=== PATIENT | male | born 1955 | race Caucasian/White ===

== ENCOUNTER 2022-10-29 06:59 | Day surgery (SDC) | payer MEDICARE ==
[2022-10-28 11:41] LABS: EOSINOPHILS # (AUTO) 0.3 X10'3 (0-0.9); EOSINOPHILS % (AUTO) 4.2 % (0-6); MONOCYTES # (AUTO) 0.8 X10'3 (0-0.9)
[2022-10-28 11:42] LABS: BASOPHILS # (AUTO) 0.1 X10'3 (0-0.2); BASOPHILS % (AUTO) 0.9 % (0-1); HEMATOCRIT 43.7 % (42.0-52.0); HEMOGLOBIN 14.9 g/dl (14.0-17.9); LYMPHOCYTES # (AUTO) 1.9 X10'3 (1.1-4.8); LYMPHOCYTES % (AUTO) 25.8 % (21-51); MEAN CORPUSCULAR HEMOGLOBIN 31.5 PG (27.0-31.0); MEAN CORPUSCULAR VOLUME 92.6 FL (78-98); MEAN PLATELET VOLUME 7.3 FL (7.4-10.4); MONOCYTES % (AUTO) 11.7 % (2-12); NEUTROPHILS # (AUTO) 4.1 X10'3 (1.8-7.7); NEUTROPHILS % (AUTO) 57.4 % (42-75); PLATELET COUNT 274 X10'3 (140-440); RED BLOOD COUNT 4.72 X10'6 (4.70-6.10); RED CELL DISTRIBUTION WIDTH 13.1 % (11.5-14.5); WHITE BLOOD COUNT 7.2 X10'3 (4.5-11.0)
[2022-10-28 11:59] LABS: ANION GAP 10 (8-16); BLOOD UREA NITROGEN 21 MG/DL (7-18); BUN/CREATININE RATIO 19.8 (10.0-20.0); CHLORIDE 102 MMOL/L (99-107); CREATININE 1.06 MG/DL (0.60-1.10); GLUCOSE 98 MG/DL (70-104); POTASSIUM 3.8 MMOL/L (3.5-5.1); SODIUM 137 MMOL/L (135-145); TOTAL CARBON DIOXIDE 25.3 MMOL/L (24-32); eGFR 69 ML/MIN
[2022-10-28 12:00] LABS: APTT 26 SECONDS (22-32)
[~2022-10-29] VITALS: Ht 170.2 cm; Wt 93.5 kg
[2022-10-29] VITALS (10 sets, daily range): BP systolic 129–151; BP diastolic 67–90; PULSE 60–78; RESP 12–16; O2SAT 93–97
[2022-10-29] MEDS ORDERED: LORazepam 0.5 MG tablet PO PRN (07:20)
[2022-10-29] MEDS ORDERED: diphenhydrAMINE 25mg capsule PO PRN (07:20)
[2022-10-29] MEDS ORDERED: normal saline 1,000 ML IV SCH (07:20)
[2022-10-29] MEDS ORDERED: TADA20TA43 PO (07:38)
[2022-10-29] MEDS ORDERED: ATOR20TA66 PO (07:38)
[2022-10-29] MEDS ORDERED: OLME1TAB54 PO (07:38)
[2022-10-29] MEDS ORDERED: fentaNYL/PF 50MCG/1 ML 2ML syringe ONE (09:59)
[2022-10-29] MEDS ORDERED: nitroGLYCERIN-Tridil 50MG/D5W 250 ML IV ONE (09:59)
[2022-10-29] MEDS ORDERED: verapamil 2.5 mg/ml inj IV ONE (09:59)
[2022-10-29] MEDS ORDERED: iohexol 350MG/ML 100ml bottle IV ONE (09:59)
[2022-10-29] MEDS ORDERED: LIDOcaine 1% (10mg/ml) 2ml vial ONE ×2 (09:59→10:34)
[2022-10-29] MEDS ORDERED: midazolam 1 mg/ML 2ml injection ONE (09:59)
[2022-10-29] MEDS ORDERED: heparin 1,000unit/ml 10ml vial 10 ML ONE (10:00)
[2022-10-29] MEDS ORDERED: iohexol 350 MG/ML 50ML vial IV ONE ×2 (10:01→10:51)
[2022-10-29] MEDS ORDERED: LIDOcaine 1% 30ml preserv. free vial ONE (10:34)
[2022-10-29 11:21] LABS: ISTAT HGB ART 13.9 g/dl (14.0-17.9); ISTAT Hct ART 41 %PCV (42-52); ISTAT O2 SATURATION ARTERIAL 98 % (95-98); ISTAT SOURCE ART
[2022-10-29 12:01] LABS: ISTAT Hct MIX 42 %PCV (42-52); ISTAT O2 SATURATION MIX VENOUS 69 % (60-80); ISTAT SOURCE VEN
== END 2022-10-29 16:00 | disposition home or self-care (01) ==
LOC: SSTAY O 06:59
PROVIDERS: ATTEND Internal Medicine Cardiovascular Disease
DX: I08.0 Rheumatic disorders of both mitral and aortic valves (principal); I25.10 Atherosclerotic heart disease of native coronary artery without angina pectoris; E78.5 Hyperlipidemia, unspecified; I10 Essential (primary) hypertension; G47.39 Other sleep apnea; Z98.1 Arthrodesis status; Z98.890 Other specified postprocedural states; Z98.52 Vasectomy status; Z72.89 Other problems related to lifestyle; F12.90 Cannabis use, unspecified, uncomplicated; Z79.899 Other long term (current) drug therapy; Z79.01 Long term (current) use of anticoagulants
CPT/HCPCS: 76937; 80048; 82803; 85014; 85025; 85610; 85730; 93005; 93460; 93567; 99152; 99153; J1644; J2250; J3010; J3490; Q0163; Q9967; A6258; C1725; C1769; C1894

== ENCOUNTER 2024-07-28 06:15 | Day surgery (SDC) | payer MEDICARE ==
[2024-07-27 12:57] LABS: BASOPHILS % (AUTO) 0.7 % (0-1); EOSINOPHILS # (AUTO) 0.3 X10'3 (0-0.9); EOSINOPHILS % (AUTO) 4.2 % (0-6); HEMATOCRIT 42.2 % (42.0-52.0); HEMOGLOBIN 14.4 g/dl (14.0-17.9); LYMPHOCYTES # (AUTO) 1.7 X10'3 (1.1-4.8); LYMPHOCYTES % (AUTO) 28.3 % (21-51); MEAN CORPUSCULAR HEMOGLOBIN 31.4 PG (27.0-31.0); MEAN CORPUSCULAR HGB CONC 34.1 g/dL (33.0-36.5); MEAN PLATELET VOLUME 7.2 FL (7.4-10.4); MONOCYTES # (AUTO) 0.7 X10'3 (0-0.9); MONOCYTES % (AUTO) 11.9 % (2-12); NEUTROPHILS # (AUTO) 3.4 X10'3 (1.8-7.7); NEUTROPHILS % (AUTO) 54.9 % (42-75); PLATELET COUNT 296 X10'3 (140-440); RED BLOOD COUNT 4.59 X10'6 (4.70-6.10); RED CELL DISTRIBUTION WIDTH 13.5 % (11.5-14.5); WHITE BLOOD COUNT 6.1 X10'3 (4.5-11.0)
[2024-07-27 13:06] LABS: APTT 26 SECONDS (22-32); PROTHROMBIN TIME 10.5 SECONDS (9.0-12.0)
[2024-07-27 13:10] LABS: ANION GAP 6 (8-16); BLOOD UREA NITROGEN 14 MG/DL (7-18); BUN/CREATININE RATIO 15.1 (10.0-20.0); CALCIUM 8.8 MG/DL (8.5-10.1); CHLORIDE 104 MMOL/L (99-107); CREATININE 0.93 MG/DL (0.60-1.10); GLUCOSE 96 MG/DL (70-104); POTASSIUM 3.9 MMOL/L (3.5-5.1); SODIUM 140 MMOL/L (135-145); TOTAL CARBON DIOXIDE 30.3 MMOL/L (24-32); eGFR 80 ML/MIN
[2024-07-28] VITALS (10 sets, daily range): BP systolic 115–139; BP diastolic 59–81; PULSE 63–79; RESP 10–16; TEMP 98.7; O2SAT 93–98
[~2024-07-28] VITALS: Ht 170.2 cm; Wt 90.8 kg
[~2024-07-28 06:15] MED LIST: ATOR20TA66 PO; OLME1TAB54 PO; TADA20TA43 PO
[2024-07-28] MEDS ORDERED: normal saline 1,000 ML IV SCH (06:35)
[2024-07-28] MEDS ORDERED: LORazepam 0.5 MG tablet PO PRN (06:35)
[2024-07-28] MEDS ORDERED: ATOR40TA72 PO (06:39)
[2024-07-28] MEDS ORDERED: OMEG100037 PO (06:41)
--- NOTE | 2024-07-28 06:45 | ELECTROCARDIOGRAPH REPORT ---
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 Emerson Wright Measurements Intervals Sandwich Rate: 68 P: 39 [place]: 208 QRS: -46 QRSD: 167 T: 26 QT: 438 QTc: 466 Interpretive Statements Sinus rhythm Probable left atrial enlargement Consider old inferior infarction RBBB and LAFB Electronically Signed On 07-28-2024 9:47:[address] Emerson Wright Please click the below link to view image of tracing.
[2024-07-28] MEDS ORDERED: iohexol 350 MG/ML 50ML vial IV ONE (07:40)
[2024-07-28] MEDS ORDERED: heparin 1,000unit/ml 10ml vial 10 ML ONE (07:40)
[2024-07-28] MEDS ORDERED: fentaNYL/PF 50MCG/1 ML 2ML syringe ONE (07:40)
[2024-07-28] MEDS ORDERED: LIDOcaine 1% (10mg/ml) 2ml vial ONE (07:40)
[2024-07-28] MEDS ORDERED: iohexol 350MG/ML 100ml bottle IV ONE (07:40)
[2024-07-28] MEDS ORDERED: verapamil 2.5 mg/ml inj IV ONE (07:40)
[2024-07-28] MEDS ORDERED: midazolam 1 mg/ML 2ml injection ONE (07:40)
[2024-07-28] MEDS ORDERED: nitroGLYCERIN 500mcg/5mL D5W 5 ML IV ONE (07:41)
[2024-07-28 08:52] LABS: ISTAT HGB ART 13.3 g/dl (14.0-17.9); ISTAT Hct ART 39 %PCV (42-52); ISTAT O2 SATURATION ARTERIAL 97 % (95-98); ISTAT SOURCE ART
[2024-07-28] MEDS ORDERED: normal saline 1000ml 1,000 ML IV SCH (09:45)
--- NOTE | 2024-07-29 02:24 | CARDIOLOGY REPORT ---
DATE OF SERVICE: 07/28/2024 DICTATING PHYSICIAN: VICKY Ornelas MD CARDIAC CATHETERIZATION GENDER: Male. AGE: 68. HEIGHT: 170 cm. WEIGHT: 91 kg. BODY SURFACE AREA: 2.02 m2. PRIMARY PHYSICIAN: Alla Navarro MD CARDIOLOGY: VICKY Ornelas MD INDICATION: The patient is a 68-year-old male with history of hypertension, hyperlipidemia, CAD, aortic stenosis. He had a coronary angiography on 11/19. At that time, his aortic valve was moderately narrowed with mild CAD. The patient is being followed since then. His echocardiogram from 07/20/2024 showed ejection of 65%, heavily calcified aortic valve with aortic valve area of 0.96 cm2 with peak/mean gradient of 72/48 mmHg. The patient also has been now having exertional fatigue and tiredness and reports about 20-30% drop in his energy level and after discussing risks, benefits, alternative options, the patient prefers to proceed with evaluation for TAVR and hence undergoing coronary angiography. Risks, benefits, and alternative options were discussed and informed consent obtained. PROCEDURE TECHNIQUE: The patient underwent a left heart catheterization, right radial approach, 6-Italian right radial sheath. Post-procedure access site secured with right radial band. The patient underwent right heart catheterization from right antecubital approach, 6-Italian sheath. Post-procedure access site hemostasis secured with manual compression. PROCEDURES DONE: * Ultrasound-guided right radial artery visualization and access. * Right heart catheterization. * Left heart catheterization. * LVG. * Coronary cineangiography. * Conscious sedation of 30 minutes. FINDINGS: HEMODYNAMICS: Aortic systolic 126, diastolic 69, mean 91 mmHg. LV systolic 216, LVEDP of 25 mmHg. There is a mean gradient of 69.25 mmHg across the aortic valve with aortic valve area of 0.78 cm2. Pulmonary capillary wedge pressure is 5 mmHg. PA pressure of 24/10 mmHg. RV 28/5 mmHg. Cardiac output with thermodilution method is 8.07 L/min. Cardiac index was 3.99 L/min/m2. Aortic oxygen saturation 98% and pulmonary arterial oxygen saturation of 78%. LEFT VENTRICULOGRAM: Overall, left ventricular systolic function normal. LV ejection fraction of 70%. CORONARY CINEANGIOGRAPHY: Left main coronary artery is a large caliber vessel, engaged with JL4 catheter from right radial approach. No significant disease seen. LAD is a medium caliber vessel arising at the bifurcation of the left main coronary artery, courses through the anterior intraventricular groove and ends by wrapping around the apex. LAD has an area of 10-20% narrowing. Diagonal 1 is 3.5 mm caliber with mild luminal irregularities. Diagonal 2 is 2 mm caliber with minimal luminal irregularities. Circumflex artery is a medium caliber vessel arising at the bifurcation of the left main coronary, predominantly continues as principal obtuse marginal branch, which is about 3 mm in diameter. Right coronary artery is a medium caliber vessel arising from right aortic sinus, courses through the right AV groove, ends at the posterior crux by dividing into PDA and the posterolateral branch. RCA has areas of 20% narrowing. RCA in its branches have mild luminal irregularities. IMPRESSION: A 68-year-old male with LV ejection fraction of 70%. LVEDP of 25 mmHg. There is a mean gradient of 69.25 mmHg with aortic valve of 0.78 cm2. Pulmonary capillary wedge pressure of 5 mmHg. PA pressure of 24/10 mmHg. Left main normal. LAD areas of 10-20% narrowing. Circumflex with minimal disease. Dominant RCA with mid and distal 20% narrowing. RECOMMENDATIONS: Recommend continued aggressive coronary risk factor modification, namely low-fat, low-cholesterol diet, maintaining ideal body weight, keeping LDL less than 70 mg percent with regular exercise program. In view of his symptoms, the patient is being referred to TAVR Program. Risks, benefits, and alternative options discussed with the patient and his . VICKY Ornelas MD TID: [id number] RECEIPT: [id number] EMMA/KEVIN/CASEY cc: Alla Navarro MD [facility]
[2024-07-29 06:07] LABS: ISTAT HGB MIX 12.9 g/dl (14.0-17.9); ISTAT Hct MIX 38 %PCV (42-52); ISTAT O2 SATURATION MIX VENOUS 78 % (60-80); ISTAT SOURCE BLNK
== END 2024-07-28 14:00 | disposition home or self-care (01) ==
LOC: SSTAY O 06:15
PROVIDERS: ATTEND Internal Medicine Cardiovascular Disease
DX: I25.119 Atherosclerotic heart disease of native coronary artery with unspecified angina pectoris (principal); I35.0 Nonrheumatic aortic (valve) stenosis; I34.2 Nonrheumatic mitral (valve) stenosis; I10 Essential (primary) hypertension; G47.39 Other sleep apnea; E78.5 Hyperlipidemia, unspecified; Z98.890 Other specified postprocedural states; Z79.01 Long term (current) use of anticoagulants
CPT/HCPCS: 36415; 80048; 82803; 85014; 85025; 85610; 85730; 93005; 93460; 99152; 99153; A6258; A6402; C1725; C1894; J1644; J2003; J2250; J3010; J3490; J7030; Q9967; Z7610; 76937

== ENCOUNTER 2024-08-03 08:32 | Outpatient (CLI) | payer MEDICARE ==
[~2024-08-03 08:32] MED LIST changes: -ATOR20TA66 PO; +ATOR40TA72 PO; +OMEG100037 PO; +iohexol 350MG/ML 100ml bottle IV ONE
[2024-08-03 09:00] LABS: BASOPHILS % (AUTO) 0.6 % (0-1); EOSINOPHILS # (AUTO) 0.3 X10'3 (0-0.9); EOSINOPHILS % (AUTO) 5.1 % (0-6); HEMATOCRIT 42.8 % (42.0-52.0); HEMOGLOBIN 14.6 g/dl (14.0-17.9); LYMPHOCYTES # (AUTO) 1.5 X10'3 (1.1-4.8); LYMPHOCYTES % (AUTO) 23.7 % (21-51); MEAN CORPUSCULAR HEMOGLOBIN 31.4 PG (27.0-31.0); MEAN CORPUSCULAR VOLUME 92.2 FL (78-98); MEAN PLATELET VOLUME 7.1 FL (7.4-10.4); MONOCYTES % (AUTO) 16.4 % (2-12); NEUTROPHILS # (AUTO) 3.4 X10'3 (1.8-7.7); NEUTROPHILS % (AUTO) 54.2 % (42-75); PLATELET COUNT 234 X10'3 (140-440); RED BLOOD COUNT 4.64 X10'6 (4.70-6.10); RED CELL DISTRIBUTION WIDTH 13.5 % (11.5-14.5); WHITE BLOOD COUNT 6.2 X10'3 (4.5-11.0)
[2024-08-03 09:14] LABS: APTT 27 SECONDS (22-32); PROTHROMBIN TIME 10.4 SECONDS (9.0-12.0)
[2024-08-03 09:22] LABS: ALANINE AMINOTRANSFERASE 26 U/L (12-78); ALBUMIN 3.8 G/DL (3.4-5.0); ALBUMIN/GLOBULIN RATIO 1.1 (1.1-1.5); ALKALINE PHOSPHATASE 89 IU/L (46-116); ANION GAP 8 (8-16); ASPARTATE AMINO TRANSFERASE 20 U/L (10-37); BILIRUBIN,TOTAL 0.5 MG/DL (0.1-1.0); BLOOD UREA NITROGEN 9 MG/DL (7-18); BUN/CREATININE RATIO 9.7 (10.0-20.0); CALCIUM 8.7 MG/DL (8.5-10.1); CHLORIDE 102 MMOL/L (99-107); CREATININE 0.93 MG/DL (0.60-1.10); GLUCOSE 108 MG/DL (70-104); PRO BRAIN NATRIURETIC PEPTIDE 113 PG/ML (0-125); SODIUM 142 MMOL/L (135-145); TOTAL CARBON DIOXIDE 31.7 MMOL/L (24-32); TOTAL PROTEIN 7.3 G/DL (6.4-8.2); eGFR 80 ML/MIN
[2024-08-03 10:24] LABS: TOTAL CELLS COUNTED 100
[2024-08-03 10:25] LABS: PLATELET ESTIMATE NORMAL
--- NOTE | 2024-08-03 11:01 | RADIOLOGY REPORT ---
DI CHEST,TWO VIEWS CLINICAL HISTORY: TAVR COMPARISON: None TECHNIQUE: Frontal and lateral view of the chest was obtained FINDINGS: Lines and Tubes: None Lungs: No focal consolidation. Pleura: No effusion. No pneumothorax. Cardiomediastinal contours: Unremarkable Bones: No acute osseous abnormality. IMPRESSION: No acute cardiopulmonary disease.
--- NOTE | 2024-08-03 12:24 | VASCULAR REPORT ---
CAROTID ARTERIAL DOPPLER CLINICAL HISTORY: Preop. TECHNIQUE: Doppler study of bilateral carotid/vertebral arteries were performed. Comparison: None FINDINGS: The bilateral common carotid, external and internal carotid arteries appear patent without hemodynami felix significant stenosis. There is no significant flow limiting plaque formation identified.The sp ectral wave forms and peak systolic velocities are within normal limits. Antegrade flow is present within the vertebral arteries. Right ICA/CCA PSV ratio = 1.04. Left ICA/CCA PSV ratio = 0.71 . IMPRESSION: 1. No hemodynamically significant stenosis within the carotid arteries. HS:Y
--- NOTE | 2024-08-04 16:27 | RADIOLOGY REPORT ---
Procedure: CT CTA TAVR Reason for study/Clinical History: Chest pain, evaluate for dissection. Comparison Study: None Exam Date: 08/03/2024 10:30 AM TECHNIQUE: Multiplanar reformatted images were generated from volumetric data acquired on a multidetector CT [facility] [place]. Cardiac gating was utilized. Arterial phase images were obtained through the chest, abdomen and pelvis following intravenous administration of contrast material. 100 mL visipaque [address] dose reduction techniques were utilized. 3-D reconstructions were performed on an independent work station. Radiation Dose Information: CT Dose: CTDI volume is 65 mGy. Dose-length product is 2465 mGy*cm FINDINGS: Vascular: Aortic measurements: Aortic annulus: 27.9 x 25.3 mm Sinus of valsalva: right cusp 31.5 mm, left cusp 28.8 mm, non-coronary cusp 31.4 mm Right coronary distance: 18.8 Left coronary distance: 15.7 ST junction 27 mm Ascending aorta 33.3 mm Aortic arch 26 mm Descending aorta 27 mm Aortic hiatus 25 mm Upper abdominal aorta 23 mm Minimal abdominal aorta 15.4 mm Right common iliac 8.74 mm, tortuosity index 1.08 Left common iliac 9.84 mm, tortuosity index 1.12 There is normal caliber of aorta. No aortic dissection. Aortic arch anatomy is conventional. There is conventional coronary artery anatomy. Scattered calcified atherosclerotic plaque. No central pulmonary embolism. There is normal dimension of the main pulmonary artery. Heart is normal. There are no intracardiac filling defects. No pericardial effusion. Mediastinum: Prominent precarinal lymph node measuring up to 12 mm in short axis.. Lungs: Lungs are clear. Pleura: No effusion or pneumothorax. Chest wall: No acute abnormality. Abdomen and Pelvis: Liver: Subcentimeter left hepatic cyst. Gallbladder: Normal in appearance. Spleen: Normal in appearance. Pancreas: Normal in appearance. Adrenals: Normal in appearance. Kidneys: Normal in appearance. Bowel: Normal in appearance. Peritoneum: No free air or free fluid. Fat containing bilateral inguinal hernias. Lymph nodes: No lymphadenopathy by CT size criteria. Pelvic structures: No pelvic mass. Bones: Postsurgical changes in the lumbar spine. Multilevel degenerative disease. IMPRESSION: 1. TAVR planning with vascular measurements as described above. 2. Mildly prominent precarinal lymph node measuring up to 12 mm in short axis. Clinical correlation a nd continued follow-up is recommended. Subcentimeter hepatic cyst. Bilateral fat containing inguinal hernias. HS:Y
[2024-08-19] MEDS ORDERED: ASPI81TA53 PO (15:00)
== END 2024-08-03 23:59 | disposition home or self-care (01) ==
LOC: RAD 08:32
PROVIDERS: ATTEND Internal Medicine Cardiovascular Disease
DX: K40.20 Bilateral inguinal hernia, without obstruction or gangrene, not specified as recurrent (principal); I35.0 Nonrheumatic aortic (valve) stenosis; R06.02 Shortness of breath; I65.29 Occlusion and stenosis of unspecified carotid artery; K76.89 Other specified diseases of liver; I70.0 Atherosclerosis of aorta
CPT/HCPCS: 36415; 71046; 71275; 74174; 75572; 80053; 83880; 85007; 85025; 85610; 85730; 93880; Q9967

== ENCOUNTER 2024-08-04 08:16 | Outpatient (CLI) | payer MEDICARE ==
[~2024-08-04] VITALS: Ht 144.8 cm; Wt 90.8 kg
[~2024-08-04 08:16] MED LIST changes: +IODIXANOL 320 MG/ML INFUS..BTL 100ML IV ONE; -iohexol 350MG/ML 100ml bottle IV ONE
[2024-08-04 15:12] VITALS: BP 120/66; PULSE 74; RESP 18; TEMP 97.7; O2SAT 96
--- NOTE | 2024-08-04 16:08 | CONSULTATION REPORT ---
History of Present Illness Providers to CC CC: DONNA NGUYỄN MD ~ Refering MD: Dr. Nguyễn History of Present Illness A Very pleasant 68yo man with Hypertension, Hyperlipidemia, Severe Symptomatic Aortic Stenosis here to be evaluated in the TAVR clinic. He is accompanied by his . States he is very active at baseline, is now retired. Still has a large property with a ranch, able to do most of his activities. Has slowed down over the last 1-2 years, gets fatigued after working for 4-5 hours. Previously, was able to work all day without issues. He denies any chest pain, syncope, dizziness/lightheadedness, bleeding, LE edema. Allergies: Coded Allergies: diphenhydramine (Verified Allergy, Unknown, 07/28/24) Active prescriptions Atorva 40mg QHS Ebohsdcdhr-Hjzpsmjawc-MWVH 40-10-25mg QD Tadalafil [place] 3 Home Medications Home Medications Active Reported Fish Oil 1,000 mg Softgel ([place]-3/Dha/Epa/Fish Oil) 1,000 Mg (120 Mg-180 Mg) Capsule 1 Cap PO DAILY Atorvastatin Calcium 40 Mg Tablet 1 Tab PO DAILY Aapbsew-Olcnqq-Saop 40-10-25Mg (Olmesartan/Amlodipin/Hcthiazid) 1 Each Tablet 1 Tab PO DAILY Tadalafil 20 Mg Tablet 1 Tab PO DAILY Past Medical History Medical History Comment 1. Severe, Symptomatic Aortic Stenosis 2. Hypertensive heart disease 3. Hyperlipidemia Past Surgical History Surgical History Comment No prior heart or lung surgeries Past Social History Social History Comment Denies tobacco or alcohol abuse Physical Exam Last Vital Signs Recorded: Temperature: 97.7, Source: Temporal, Heart Rate: 74, Respiratory Rate: 18, BP: 120/66, Pulse Oximetry: 96, Weight: 90.800 General Appearance: alert, no apparent distress Respiratory: lungs clear Cardiovascular: regular rate, rhythm, systolic murmur (III/ SM RUSB/LUSB) Peripheral Pulses: 2+ radial (R), 2+ radial (L) Gastrointestinal: bowels sounds present Extremities: no edema Neurologic: oriented x4 Psychiatric: normal mood/affect Review of Systems ROS ROS Comments: A 14-point review of systems is positive as above. The rest of the review of systems has been done and found to be unrevealing. Results Results/Orders Results/Orders Hg 14.6 HCt 42.8, Cr 0.93 Echocardiogram: LVEF 65%, PV 5.0 m/s, MG 50 mmHg, SHARON 0.8cm2. Mild AI. Mean Mitral valve gradient 5mmHg Coronary Angiogram: No significant obstructive CAD Pulmonary Function Tests: FEV1 80% Carotid Ultrasound: No obstructive carotid disease EKG: Normal Sinus rhythm, Right bundle-branch block, QRS 166ms CT TAVR: Large Caliber vessels amenable to transfemoral transcatheter aortic va lve replacement. Sinuses are large enough, coronaries are high enough. Assessment/Plan Problems/Diagnosis: (1) Aortic stenosis Assessment & Plan: A Very pleasant 68yo man with Hypertension, Hyperlipidemia, Severe Symptomatic Aortic Stenosis here to be evaluated in the TAVR clinic. He is accompanied by his . He has severe, symptomatic aortic stenosis with NYHA Class III symptoms of dyspnea on exertion, fatigue. Patient appears to be a good candidate for a transfemoral transcatheter aortic valve replacement. Had an extensive discussion with the patient and his . He has a heavily calcified annulus with leaflet calcification as well as heavy Mitral annular calcification. --Due to such, did discuss surgical vs transcatheter aortic valve replacement. He would be a candidate for future vvhwi-wl-drykl options given annulus of 513mm2, STJ of [id number], left coronary 18.7mm and right coronary artery of 22.5mm. --He will discuss with his family as well as Dr. Nguyễn and inform the valve clinic of his decision. If he does decide to proceed with Transcatheter valve replacement, will plan for a 26mm valve via either femoral approach. Dr. Nguyễn, We thank you for allowing us the opportunity to help with the patient. They will see you back in the office shortly. RONALD RUIZ MD August 04, 2024 16:08
--- NOTE | 2024-08-09 22:06 | CONSULTATION ---
DATE OF CONSULTATION: 08/04/2024 DICTATING PHYSICIAN: Hector Amador MD CONSULTATION REPORT PRIMARY CARE PROVIDER: Alla Navarro MD REFERRING PHYSICIAN: VICKY Ornelas MD CHIEF COMPLAINT: I was asked to assess the options for surgical correction of symptomatic, severe trileaflet aortic valve stenosis in this patient with a particularly low STS risk. 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 He has been followed very carefully by Dr. Ornelas and the progression of aortic valve stenosis from cizxqkfg-zh-cfcphcqr to severe, to severe is well documented. The patient now has symptoms that are midway between NYHA Class 2 and Class 3, but are principally involving exertional fatigue rather than orthopnea. He, however, has begun to experience some dizziness, but without overt syncope. The patient walks 60 minutes 4 days a week. There are no palpitations. There is nonobstructive coronary disease. The patient has hypertension and at catheterization has a left ventricular end diastolic pressure of 25 mmHg. The pulmonary artery pressures, however, were normal. The most recent echocardiogram shows a mean aortic valve gradient of 50 mmHg with a peak velocity of 5. There is, however, mild mitral valve stenosis with a mean gradient of 5 mmHg. The aortic valve area was 0.8 cm2. TAVR CTA imaging shows calcified true leaflet valve. The annular diameter is 25.6 mmHg. The coronary arteries are high bilaterally. The sinotubular junction measures 29 mmHg. The aortic annular angle is 50 degrees. There is notably a right bundle-branch block with the patient's sinus rhythm. The annular area is 510 mmHg, making the patient appropriate for a 26 mm diameter [place] 3 valve, should that approach be utilized. There are no pronounced vascular access issues and minimal tortuosity. ALLERGIES: None. MEDICATIONS: * Olmesartan - amlodipine - hydrochlorothiazide. * Atorvastatin. * Fish oil. * Tadalafil. PREVIOUS OPERATIONS: Notable for lumbar spine fusion with success. MEDICAL ILLNESSES: As outlined above plus hypertension and hyperlipidemia. FAMILY HISTORY: The patient's siblings are all alive. The patient's parents in their eighth decade. PERSONAL AND SOCIAL HISTORY: The patient uses some recreational marijuana. He is a lifetime nonsmoker. REVIEW OF SYSTEMS: CONSTITUTIONAL: Negative for fevers, chills, weight loss, night sweats. HEENT: The patient wears spectacles. Negative for changes in visual or auditory acuity, epistaxis, or dysphagia. CARDIOPULMONARY: See history of present illness. Negative for cough or hemoptysis. Negative for palpitations. Notable for mild lower extremity edema. GASTROINTESTINAL: Negative for gastroesophageal reflux, blood per rectum, or hepatitis. GENITOURINARY: Notable for only 0-1 nocturia. MUSCULOSKELETAL: Negative for claudication or back pain requiring narcotics. NEUROLOGIC: Negative for transient ischemic attacks, amaurosis, or seizure. PHYSICAL EXAMINATION: GENERAL: The patient is a healthy-appearing man without respiratory distress. He is accompanied by his . VITAL SIGNS: Reviewed. HEENT: Normocephalic, reactive pupils, no thyromegaly, notable for transmitted rhonchi to both carotids, normal jugular venous. Good dental repair. LYMPHADENOPATHY: Negative for cervical or supraclavicular lymphadenopathy. CHEST: Normal contour, clear lungs. HEART: S1, S2, 3/6 systolic ejection murmur, no diastolic murmur. Regular rhythm without extra systole. ABDOMEN: Minimally obese, nondistended, nontender. EXTREMITIES: Trivial edema. NEUROLOGIC: Grossly normal. Normal gait and stance. IMPRESSION AND PLAN: * For reasons of valve durability plus the patient's good constitution, he should clearly be considered for surgical aortic valve replacement, although transcatheter replacement is a reasonable short-term approach. * With an aortic annular dimension of 25.6 mmHg, I would favor an aggressive approach to aortic valve implantation with root enlargement sufficient to implant a 25 mm bioprosthesis, which would facilitate, if ever needed in the future, a transcatheter valve and valve procedure, although the valve durability of a surgical aortic valve replacement implanted in a 68-year-old man has an excellent freedom from structural valve deterioration by comparison. * It was worth outlining the potential risk of permanent pacemaker implantation with a transcatheter valve that is less likely with a surgical aortic valve replacement. * The patient's mitral valve stenosis did not appear to be accompanied by severe mitral annular calcification. It would continue to be observed, and would not be addressed concomitantly if surgical aortic valve replacement were to be undertaken. It could be addressed in the future with a percutaneous mitral valve replacement, but may not require any procedure. * I will look to my cardiology colleagues to address the pros and cons of transcatheter replacement in this patient. With the aortic annular angle of 50 degrees and the mean transvalvular gradient of 50 mmHg, transcatheter replacement would likely involve an initial balloon dilatation to just before valve implantation. I have very much enjoyed meeting this patient. Hector Amador MD TID: [id number] RECEIPT: [id number] ELVIN/BRANDON cc: VICKY Ornelas MD(User), Alla Navarro MD
== END 2024-08-05 23:59 | disposition home or self-care (01) ==
LOC: TAVR 08:16
PROVIDERS: ATTEND Internal Medicine Cardiovascular Disease
DX: I35.0 Nonrheumatic aortic (valve) stenosis (principal); R06.02 Shortness of breath; I65.29 Occlusion and stenosis of unspecified carotid artery
CPT/HCPCS: Q9967